=== PATIENT | male | born 1945 | race Caucasian/White ===

== ENCOUNTER 2016-12-28 10:10 | Observation (INO) | payer MEDICARE, BC ==
[~2016-12-28] VITALS: Ht 180.3 cm; Wt 113.2 kg
--- NOTE | ~2016-12-28 | OR ---
PATIENT'S NAME: [facility]EN [facility] AGE: 71 Y [address] ROOM: [address] [address] [place] [facility] [place]: 12[place]28/[place] OR/Procedure Report DISCHARGE DATE: FAMILY PHYSICIAN: Percy Moore MD ATTENDING PHYSICIAN: Antione Holloway SURGEON: Antione Holloway MD [place]: DATE OF PROCEDURE: 12/28/2016 PREOPERATIVE DIAGNOSIS: Benign prostatic hypertrophy with bladder obstruction, with progressive symptoms in spite of maximum medical management. POSTOPERATIVE DIAGNOSIS: Benign prostatic hypertrophy with bladder obstruction, with progressive symptoms in spite of maximum medical management, pathology pending. PROCEDURE: Cystoscopy with transurethral resection and button vaporization of the prostate. ANESTHESIA: General by laryngeal airway. INDICATION: This is a 71-year-old gentleman with longstanding lower urinary tract symptoms. He has been on alpha tod for years. He has a bump that up to a twice a day dose. He was started on a 1-cwbno-xlmzkllgv inhibitor in [place] in the last year or 2. In spite of that, his symptoms are progressive. He requests intervention. DESCRIPTION OF PROCEDURE: Having obtained his informed consent, the patient was taken to the operating room. He was prepped and draped sterilely in lithotomy position. General anesthesia was administered per the patient preference. Rigid cystoscopy was undertaken. The course of the urethra was unremarkable back to prostatic urethra. He has marked trilobar hypertrophy. We have to look up and over his middle lobe. His prostate is more impressive cystoscopically than it is on digital rectal exam. The bladder itself demonstrates changes consistent with chronic outlet obstruction with cellule and small diverticula formation. Even with the 70 degree lens, it is difficult to appreciate his orifices. They are hidden by his large middle lobe. Fortunately, after we get that resected, I can visualize both orifices, and we stayed safely away from them. After careful examination of bladder revealed no other abnormalities, the resectoscope was placed. We started with a loop and resected the middle lobe tissue and the lateral lobe tissue as it fell in. We worked our way out toward the verumontanum. We were basically doing the lateral lobes in quadrants. Once we got that tissue all cleared out, I switched to the button and vaporized the tissue further. At the conclusion, we have him up and opened up nicely. We have good hemostasis. PATIENT'S NAME: ARMEN [facility] AGE: 71 Y [address] ROOM: [place] [address] [place] [facility] [place]: 12/28/2016 OR/Procedure Report DISCHARGE DATE: FAMILY PHYSICIAN: Percy Moore MD ATTENDING PHYSICIAN: Antione Holloway All chips were evacuated. A 24-Nepali three-way catheter was placed and it irrigates easily to clear. The patient tolerated the procedure well. BLOOD LOSS: Less than 50 mL. SPECIMENS: The resected chips were sent for specimen. The patient returned to the recovery awake and in stable condition. ANTIONE HOLLOWAY MD [facility]/modl /[id number] CC: Percy Moore MD d: 12/28/16 2056 t: 01/10/17 1312, OPERATIVE SUMMARY
--- NOTE | ~2016-12-28 | HP ---
PATIENT'S NAME: LIVAN [facility] AGE: 71 Y [address] ROOM: [place], [place] [address] LOCATION: [facility] ADMIT DATE: 12/21/2016 History & Physical DISCHARGE DATE: FAMILY PHYSICIAN: Percy Moore MD ATTENDING PHYSICIAN: Antione Rasheed DATE OF SERVICE: CHIEF COMPLAINT: "Prostate issues." HISTORY: This is a 71-year-old gentleman with chronic voiding symptoms. He has been on an alpha-tod for over 10 years. He has had the progression of his symptoms. His main complaints are weak stream and nocturia. He had recently been seen in [place], and they had added a 5-qnfjq-jzzrnycxk inhibitor in the form of finasteride. He bumped his tamsulosin up to twice a day. He has to the point where he has failed medical management, and he requests an intervention. We had previously taken care of his brother with a transurethral resection, and Livan is interested in pursuing that. He presents at this time for that procedure. PAST MEDICAL HISTORY: Hmt-hjycuai-cjbvrjnki diabetes and elevated cholesterol. He has had back surgery and a cardiac catheterization. MEDICATIONS: Reviewed and as listed. ALLERGIES: NONE. REVIEW OF SYSTEMS: Remarkable for the symptoms outlined above. His full system review is essentially negative except as related to his HPI. He does occasionally have some "double vision." He denies any cardiopulmonary complaints. SOCIAL HISTORY: He is and he lives with his in [place]. He is retired. He continues to travel. As mentioned, he has been in [place]. He put off this procedure as he had a trip planned to [place]. He smokes half a pack a day. He is a social drinker. PHYSICAL EXAMINATION: GENERAL: This is a pleasant and healthy appearing 71-year-old gentleman, who PATIENT'S NAME: LIVAN [facility] AGE: 71 Y [address] ROOM: [place], [place] [address] LOCATION: [facility] ADMIT DATE: 12/21/2016 History & Physical DISCHARGE DATE: FAMILY PHYSICIAN: Percy Moore MD ATTENDING PHYSICIAN: Antione Rasheed is in no distress. VITAL SIGNS: As reported. He is 5 feet 11 inches and 258 pounds. HEART: Currently regular. LUNGS: Clear. ABDOMEN: Remarkable for obesity. : Reveals normal external genitalia. Prostate is consistent with BPH. His finasteride treatment has been sporadic, and he does not appear to have had a lot of involution. EXTREMITIES: Reveals no clubbing, cyanosis, or edema. IMPRESSION: Longstanding lower urinary tract symptoms with progression in spite of medical management. PLAN: Cystoscopy and resection and vaporization of the prostate. The patient understands the plan as well as the attendant risks and benefits. He has had his questions answered and he wished to proceed. MD JAC VASQUEZ/anahy /[id number] D: 400 T: HISTORY & PHYSICAL
[~2016-12-28 10:10] MED LIST: ACTOS45 MG PO; ASPIRIN EC81 MG PO; CRESTOR40 MG PO; DICYCLOMINE HCL20 MG PO; EFFEXOR XR150 MG PO; FISH OIL 1,2001 EACH PO; FLOMAX0.4 MG PO; GLUCOPHAGE1000 MG PO; GLYBURIDE5 MG PO; PREVACID15 MG PO; PROPRANOLOL HCL10 MG PO; PROSCAR5 MG PO; SUPER BETA PROSTATE PO
[2016-12-28 10:59] LABS: BASOPHIL # 0.1 K/uL (0.0-0.2); BASOPHIL % 1.1 %; EOSINOPHIL # 0.2 K/uL (0.0-0.5); EOSINOPHIL % 3.4 %; HEMATOCRIT 41.1 % (37.0-53.0); HEMOGLOBIN 14.1 g/dL (11.0-16.0); IMMATURE GRANULOCYTE % 0.2 %; LYMPHOCYTE # 1.1 K/uL (0.8-4.0); LYMPHOCYTE % 21.6 %; MCH 30.8 pg (27.0-34.0); MCHC 34.3 gm/dL (32.0-36.5); MCV 89.7 fl (83.0-98.0); MONOCYTE # 0.4 K/uL (0.0-1.0); MONOCYTE % 7.2 %; MPV 11.6 fl (9.4-12.4); NEUTROPHIL # (ANC) 3.5 K/uL (1.4-9.0); NEUTROPHIL % 66.5 %; NRBC % 0 /100WBC (0-0.00); PLATELET COUNT 153 K/uL (150-450); RBC 4.58 M/uL (3.50-5.50); RDW-CV 14.6 % (11.9-14.6); WBC 5.3 K/uL (4.0-11.0)
[2016-12-28 11:18] LABS: ALBUMIN 4.1 gm/dL (3.5-5.0); ALK PHOS 51 IU/L (33-138); ALT 34 IU/L (12-78); ANION GAP 12.2 (10.0-19.0); AST 29 IU/L (10-40); BLOOD UREA NITROGEN 14 mg/dL (6-24); CALCIUM 9.2 mg/dL (8.5-10.5); CHLORIDE 108 mMol/L (96-110); CO2 23 mMol/L (22-32); CREATININE 1.1 mg/dL (0.6-1.3); ESTIMATED GFR (MDRD EQUATION) > 60; POTASSIUM 4.2 mMol/L (3.7-5.1); SODIUM 139 mMol/L (135-145); TOTAL BILIRUBIN 0.6 mg/dL (0.0-1.5); TOTAL PROTEIN 7.3 g/dL (6.0-8.4)
--- NOTE | 2016-12-28 17:46 | NUR ---
Significant Event: PT ARRIVED TO UNIT THIS AFTERNOON FROM PACU, TUR FOR DR HOLLOWAY. HOSPITALIST CONSULTED. BEDREST. RIDLEY PATENT WITH CBI RUNNING. DIET ADVANCED TO REGULAR. PAIN IS TOLERABLE. IVF RUNNING. AC HS ACCUCHECKS. Follow up: CBI, CONTINUE TO MONITOR
[2016-12-29 05:02] LABS: BASOPHIL # 0.1 K/uL (0.0-0.2); BASOPHIL % 0.6 %; EOSINOPHIL # 0.1 K/uL (0.0-0.5); EOSINOPHIL % 1.4 %; HEMATOCRIT 35.9 % (37.0-53.0); HEMOGLOBIN 12.4 g/dL (11.0-16.0); IMMATURE GRANULOCYTE % 0.3 %; LYMPHOCYTE # 1.7 K/uL (0.8-4.0); LYMPHOCYTE % 18.7 %; MCH 31.2 pg (27.0-34.0); MCHC 34.5 gm/dL (32.0-36.5); MCV 90.2 fl (83.0-98.0); MONOCYTE # 0.8 K/uL (0.0-1.0); MPV 11.1 fl (9.4-12.4); NEUTROPHIL # (ANC) 6.3 K/uL (1.4-9.0); NRBC % 0 /100WBC (0-0.00); PLATELET COUNT 147 K/uL (150-450); RBC 3.98 M/uL (3.50-5.50); RDW-CV 14.7 % (11.9-14.6); WBC 9.1 K/uL (4.0-11.0)
[2016-12-29 05:23] LABS: ANION GAP 11.1 (10.0-19.0); BLOOD UREA NITROGEN 13 mg/dL (6-24); CALCIUM 8.4 mg/dL (8.5-10.5); CHLORIDE 108 mMol/L (96-110); CO2 25 mMol/L (22-32); ESTIMATED GFR (MDRD EQUATION) > 60; POTASSIUM 4.1 mMol/L (3.7-5.1); SODIUM 140 mMol/L (135-145)
--- NOTE | 2016-12-29 05:40 | NUR ---
SIGNIFICANT EVENT: VSS. Q4HRS AFTER SURGERY. IV R) HAND SL. BEDREST ON THIS SHIFT. CBI RUNNING FROM MODERATE TO SLOW, WITH LIGHT PINK DRAINAGE. SOME SMALL CLOTS NOTED. ORIENT X3, PLEASANT WITH CARES. B&O SUPPOSITORY @ 0143. NORCO @6878. POSSIBLE DISCHARGE TODAY.
--- NOTE | 2016-12-29 17:09 | NUR ---
Met with patient at at bedside today. Introduced myself and the role of the CM department. Per patient he is hoping to discharge to home tomorrow. He states he lives with his in their own home. He was independent prior to this hospitalization. They both deny any discharge needs or concerns. Will continue to follow and offer supports if needed.
--- NOTE | 2016-12-29 17:47 | NUR ---
Significant Event: Patient alert and oriented. Vital signs stable, room air. Forgetful, repeats himself often. Padron with CBI running slowly. ACHS accucheck, diabetic diet. Up to chair with 1PA gait belt and walker. Denies pain, uses call light appropriately. Wili visited x2 during day shift, catheter planned to dc on 12/30 in morning. at bedside this evening. Follow Up: CBI. ACHS accuchecks. Continue to monitor. Immunization screening.
--- NOTE | 2016-12-30 09:03 | NUR ---
SIGNIFICANT EVENT. VSS. IV R) HAND SL. B&0 SUPPOSITORY LAST @1999. ACHS, MODERATE SCALE. 1 ASSIST. NEEDS REINFORCEMENT WITH DIRECTIONS. BED ALARM ON THROUGH THE NIGHT. CBI RUNNING AT SLOW RATE WITH LIGHT PINK TO CLEAR DRAINAGE. PLAN TO GO HOME TODAY.
== END 2016-12-30 10:45 | disposition disaster alternative care site (69) ==
LOC: GPOC 10:10 → GMSU 10:10 → GPOC 15:53 → GMSU 15:53
PROVIDERS: ADMIT Urology
PROC: 0VB08ZZ Excision of Prostate, Via Natural or Artificial Opening Endoscopic (ICD-10-PCS; principal; 2016-12-28)
PROC: 0V508ZZ Destruction of Prostate, Via Natural or Artificial Opening Endoscopic (ICD-10-PCS; 2016-12-28)
DX: N13.8 Other obstructive and reflux uropathy (principal); E11.9 Type 2 diabetes mellitus without complications; F32.9 Major depressive disorder, single episode, unspecified; E78.00 Pure hypercholesterolemia, unspecified; I10 Essential (primary) hypertension; F17.210 Nicotine dependence, cigarettes, uncomplicated; Z98.890 Other specified postprocedural states; Z79.899 Other long term (current) drug therapy; Z79.82 Long term (current) use of aspirin
CPT/HCPCS: G0378; J1100; J1956; J2001; J2405; J3010; J7030